=== PATIENT | male | born 1980 | race African-American/Black ===

== ENCOUNTER 2020-04-13 15:39 | Inpatient (IN) | payer OTHER ==
[~2020-04-13] VITALS: Ht 167.6 cm; Wt 90.7 kg
--- NOTE | 2020-04-13 16:31 | NUR ---
SEW RECIBE PACIENTE ALERTA, ORIENTADO X 3 ESFERAS RERFIERE TENER DIFICULTAD RESPIRATORIA, TOS PERSISTENTE. SE ESTIMAN S/V SI=778/72 HJVOY=[id number], RESPIRACIONES 32, SATURACION DE OXIGENO POR OXIMETRIA DE PULSO 88. SE UBICA EN AREA DE AISLAMIENTO. CAMA # 06 SE NOTIFICA A RN. JEFFERS. SE PRESENTA A .
--- NOTE | 2020-04-13 17:19 | NUR ---
SE RECIBE PTE ALERTA Y ORIENTADO X3. SE COLOCA PTE EN CAMA CON BARANDAS ELEVADAS. SE CONECTA A MONITOR CARDIACO Y OXIMETRIA. SE CHRISTIANE MUESTRAS DE LAB. TONY ORDEN MEDICA BAJO MEDIDAS ASEPTICAS. SE CANALIZA AREA NATASHA DE EDEMA Y DE ENROJECIMIENTO. SE LE ADMINISTRAN MEDICAMENTOS TONY ORDEN MEDICA. SE LE REALIZA EKG Y SE LE PRESENTA A .SE LE COLOCA V/M TONY ORDEN DE . SE EDUCA PTE SOBRE TRATAMIENTO MEDICO Y SE MANTIENE BAJO OBSERVACION POR CAMBIOS.
[2020-04-29] MEDS ORDERED: PREDNISONE20 MG PO (13:53)
[2020-04-29] MEDS ORDERED: SULFAMETHOXAZO1 EACH PO (13:55)
[2020-04-29] MEDS ORDERED: PEPCID AC20 MG PO (13:56)
[2020-04-29] MEDS ORDERED: INTESTINEX680 M1 PO (13:56)
[2020-04-29] MEDS ORDERED: MEDROLPACK PO (14:00)
[2020-05-21] MEDS ORDERED: SEPTRA (11:00)
== END 2020-04-29 17:51 | disposition home or self-care (01) | DRG 976 ==
LOC: ER 15:39 → MEDJ 22:23
PROVIDERS: ADMIT Internal Medicine; ATTEND Internal Medicine
PROC: 3E0F7GC Introduction of Other Therapeutic Substance into Respiratory Tract, Via Natural or Artificial Opening (ICD-10-PCS; 2020-04-13)
PROC: 8E0ZXY6 Isolation (ICD-10-PCS; principal; 2020-04-14)
PROC: XW033E5 Introduction of Remdesivir Anti-infective into Peripheral Vein, Percutaneous Approach, New Technology Group 5 (ICD-10-PCS; 2020-04-14)
PROC: XW0DXM6 Introduction of Baricitinib into Mouth and Pharynx, External Approach, New Technology Group 6 (ICD-10-PCS; 2020-04-14)
PROC: 3E0F7SF Introduction of Other Gas into Respiratory Tract, Via Natural or Artificial Opening (ICD-10-PCS; 2020-04-14)
PROC: 4A033R1 Measurement of Arterial Saturation, Peripheral, Percutaneous Approach (ICD-10-PCS; 2020-04-14)
PROC: B24BZZZ Ultrasonography of Heart with Aorta (ICD-10-PCS; 2020-04-14)
PROC: 4A12X4Z Monitoring of Cardiac Electrical Activity, External Approach (ICD-10-PCS; 2020-04-14)
PROC: CB2YYZZ Tomographic (Tomo) Nuclear Medicine Imaging of Respiratory System using Other Radionuclide (ICD-10-PCS; 2020-04-14)
DX: U07.1 COVID-19 (principal); B20 Human immunodeficiency virus [HIV] disease; B59 Pneumocystosis; J12.82 Pneumonia due to coronavirus disease 2019; B37.0 Candidal stomatitis; R09.02 Hypoxemia; Z20.822 Contact with and (suspected) exposure to COVID-19; R00.0 Tachycardia, unspecified; E88.09 Other disorders of plasma-protein metabolism, not elsewhere classified; D50.8 Other iron deficiency anemias; E55.9 Vitamin D deficiency, unspecified

== ENCOUNTER → 2020-05-21 | Emergency (ER) | payer OTHER ==
[~2020-05-21] VITALS: Ht 167.6 cm; Wt 86.2 kg
[~2020-05-21] MED LIST: INTESTINEX680 M1 PO; MEDROLPACK PO; PEPCID AC20 MG PO; PREDNISONE20 MG PO; SEPTRA; SULFAMETHOXAZO1 EACH PO
== END | disposition left against medical advice (07) ==
LOC: ER 10:20
DX: Z53.20 Procedure and treatment not carried out because of patient's decision for unspecified reasons (principal)

== ENCOUNTER 2020-08-10 07:43 | Outpatient (CLI) | payer OTHER | END 2020-08-10 07:47 | disposition home or self-care (01) | LOC: LAB 07:43 | PROVIDERS: ATTEND Emergency Medicine Emergency Medical Services | DX: B20 Human immunodeficiency virus [HIV] disease (principal) ==

== ENCOUNTER 2021-05-19 06:44 | Outpatient (CLI) | payer OTHER | END 2021-05-19 06:45 | disposition home or self-care (01) | LOC: LAB 06:44 | PROVIDERS: ATTEND Emergency Medicine Emergency Medical Services | DX: B20 Human immunodeficiency virus [HIV] disease (principal) ==

== ENCOUNTER 2021-10-18 07:15 | Outpatient (CLI) | payer OTHER | END 2021-10-18 07:19 | disposition home or self-care (01) | LOC: LAB 07:15 | PROVIDERS: ATTEND Emergency Medicine Emergency Medical Services | DX: B20 Human immunodeficiency virus [HIV] disease (principal) ==

== ENCOUNTER 2022-10-09 07:07 | Outpatient (CLI) | payer OTHER | END 2022-10-09 07:08 | disposition home or self-care (01) | LOC: LAB 07:07 | PROVIDERS: ATTEND Emergency Medicine Emergency Medical Services | DX: B20 Human immunodeficiency virus [HIV] disease (principal) ==

== ENCOUNTER 2023-02-06 08:14 | Outpatient (CLI) | payer OTHER ==
[2023-02-06 09:13] LABS: HEMATOCRIT 39.3 % (39.0-48.0); HEMOGLOBIN 12.8 g/dL (13-16.00); MEAN CELL VOLUME 71.2 fL (80.0-100.00); MEAN CORPUSCULAR HEMOGLOBIN 23.2 pg (27.00-32.0); MEAN CORPUSCULAR HGB CONC 32.6 g/dl (32.0-36.0); PLATELET COUNT 229 K/uL (150-450); RED BLOOD COUNT 5.52 M/uL (4.00-6.00); RED CELL DISTRIBUTION WIDTH 15.6 % (11.5-14.5)
[2023-02-06 09:24] LABS: PH,URINE 5.5 (5.0-8.0); URINE APPEARANCE Clear; URINE BILIRRUBIN Negative (NEGATIVE); URINE BLOOD Negative; URINE COLOR Yellow; URINE GLUCOSE Negative (NEGATIVE); URINE LEUKOCYTE Negative; URINE NITRATE Negative; URINE PROTEIN Trace (NEGATIVE); URINE UROBILINOGEN 0.2 E.U./dl
[2023-02-06 09:26] LABS: URINE BACTERIA 40.3 uL (0.0-1933); URINE EPITHELIAL CELLS 4.4 uL (0.0-38.8); URINE RBC 3.1 uL (0.0-20.8); URINE WBC 4.6 uL (0.0-23.2)
[2023-02-06 10:11] LABS: ALBUMIN 3.9 gm/dL (3.4-5.0); BILIRUBIN TOTAL 0.48 mg/dL (0.3-1.2); CREATININE SERUM 1.08 mg/dL (0.70-1.30); GFR 74.98; GLOBULINA 3.5 G/DL (2.4-3.5); POTASSIUM 4.29 mEq/L (3.5-5.1); TOTAL PROTEIN 7.4 gm/dL (6.4-8.2)
== END 2023-02-06 08:30 | disposition home or self-care (01) ==
LOC: LAB 08:14
PROVIDERS: ATTEND Emergency Medicine Emergency Medical Services
DX: B20 Human immunodeficiency virus [HIV] disease (principal)

== ENCOUNTER 2024-06-18 06:13 | Outpatient (CLI) | payer OTHER ==
[2024-06-18 07:17] LABS: PH,URINE 5.5 (5.0-8.0); URINE APPEARANCE Clear; URINE BILIRRUBIN Negative (NEGATIVE); URINE BLOOD Negative; URINE COLOR Yellow; URINE GLUCOSE Negative (NEGATIVE); URINE KETONE Negative (NEGATIVE); URINE LEUKOCYTE Negative; URINE NITRATE Negative; URINE PROTEIN Negative (NEGATIVE); URINE UROBILINOGEN 0.2 E.U./dl
[2024-06-18 07:22] LABS: URINE BACTERIA 9.7 uL (0.0-1933)
[2024-06-18 07:36] LABS: URINE EPITHELIAL CELLS 0.9 uL (0.0-38.8); URINE WBC 1.2 uL (0.0-23.2)
[2024-06-18 08:03] LABS: HEMATOCRIT 40.3 % (39.0-48.0); HEMOGLOBIN 12.5 g/dL (13-16.00); MEAN CELL VOLUME 73.3 fL (80.0-100.00); MEAN CORPUSCULAR HEMOGLOBIN 22.8 pg (27.00-32.0); MEAN CORPUSCULAR HGB CONC 31.1 g/dl (32.0-36.0); PLATELET COUNT 216 K/uL (150-450); RED CELL DISTRIBUTION WIDTH 15.2 % (11.5-14.5)
[2024-06-18 08:23] LABS: CHOL HDL RATIO 3.3 (0-5.0)
[2024-06-18 08:24] LABS: ALBUMIN 3.6 gm/dL (3.4-5.0); BILIRUBIN TOTAL 0.36 mg/dL (0.3-1.2); CALCIUM 8.6 mg/dL (8.5-10.1); CREATININE SERUM 1.02 mg/dL (0.70-1.30); GFR 79.34; GLOBULINA 3.4 G/DL (2.4-3.5); POTASSIUM 4.06 mEq/L (3.5-5.1)
[2024-06-19 21:04] LABS: chla t Negative (Negative); neiss Negative (Negative)
== END 2024-06-18 06:18 | disposition home or self-care (01) ==
LOC: LAB 06:13
PROVIDERS: ATTEND Emergency Medicine Emergency Medical Services
DX: B20 Human immunodeficiency virus [HIV] disease (principal); I10 Essential (primary) hypertension; E78.2 Mixed hyperlipidemia; Z11.3 Encounter for screening for infections with a predominantly sexual mode of transmission; E03.9 Hypothyroidism, unspecified; E11.9 Type 2 diabetes mellitus without complications; Z12.5 Encounter for screening for malignant neoplasm of prostate; Z20.5 Contact with and (suspected) exposure to viral hepatitis; R74.8 Abnormal levels of other serum enzymes

== ENCOUNTER → 2024-12-02 10:30 | Outpatient (CLI) | payer OTHER ==
[2024-12-02 11:01] LABS: BASO % 0.5 % (0.1-1.2); EOS # 0.17 (0.04-0.54); EOS % 2.9 % (0.7-7.0); LYMPH # 1.67 (1.18-3.74); LYMPH % 28.6 % (19.3-53.1); MEAN PLATELET VOLUME 9.10 fl (9.4-12.4); MONO # 0.49 (0.24-0.82); MONO % 8.4 % (4.7-12.5); NEUT # 3.45 (1.56-6.13); NEUT % 59.3 % (34.0-71.1); RED CELL DISTRIBUTION WIDTH 14.4 % (11.6-14.4)
[2024-12-02 11:25] LABS: URINE APPEARANCE Clear; URINE BILIRRUBIN Negative (NEGATIVE); URINE BLOOD Negative; URINE COLOR Yellow; URINE GLUCOSE Negative (NEGATIVE); URINE KETONE Trace (NEGATIVE); URINE LEUKOCYTE Negative; URINE NITRATE Negative; URINE PROTEIN Negative (NEGATIVE); URINE UROBILINOGEN 0.2 E.U./dl
[2024-12-02 11:26] LABS: URINE BACTERIA 31.1 uL (0.0-1933); URINE EPITHELIAL CELLS 5.0 uL (0.0-38.8); URINE WBC 2.6 uL (0.0-23.2)
[2024-12-02 11:27] LABS: URINE CAST 0.00 uL (0.0-1.40); URINE RBC 1.3 uL (0.0-20.8)
[2024-12-02 11:55] LABS: ALT/SGPT 36.0 U/L (12-78); AST/SGOT 25.0 U/L (15-37); BILIRUBIN TOTAL 0.7 mg/dL (0.3-1.2); BUN CREA RATIO 22.0 (7.0-25.0); CHOL HDL RATIO 4.1 (0-5.0); CREATININE SERUM 1.06 mg/dL (0.70-1.30); GFR 75.9; GLOBULINA 3.5 G/DL (2.4-3.5); GLUCOSE FASTING 85.0 mg/dL (65-100); HDL 46.0 mg/dl (40-60); LDL 113.0 mg/dl (0-130); OSMOLALITY SERUM 284.0 MOSM/KG (275-295); VLDL 30.0 (0-39)
[2024-12-03 21:07] LABS: chla t Negative (Negative); neiss Negative (Negative)
== END | disposition home or self-care (01) ==
LOC: LAB 10:30
DX: E78.2 Mixed hyperlipidemia (principal); I10 Essential (primary) hypertension; Z11.3 Encounter for screening for infections with a predominantly sexual mode of transmission; E11.9 Type 2 diabetes mellitus without complications; Z12.5 Encounter for screening for malignant neoplasm of prostate; Z20.5 Contact with and (suspected) exposure to viral hepatitis; R74.8 Abnormal levels of other serum enzymes